=== PATIENT | male | born 1975 | race American Indian/Alaskan Native ===

== ENCOUNTER 2020-04-21 03:34 | Emergency (ER) | payer OTHER ==
[2020-04-21] MEDS ORDERED: ONDANSETRON 4 MG ODT TAB PO ONE (05:13)
[2020-04-21] MEDS ORDERED: HYDROcodone/ACETAMINOPHEN 7.5-325MG TAB PO ONE (05:13)
[2020-04-21] MEDS ORDERED: IBUPROFEN 800 MG TAB PO ONE (05:13)
--- NOTE | 2020-04-21 05:50 | Emergency Department Report ---
ED Lower Extremity HPI - General Chief Complaint: Extremity Injury, Lower Stated Complaint: LEFT LEG PAIN Source: patient Mode of arrival: Ambulatory Limitations: No Limitations - History of Present Illness Initial Comments: Patient is a 44-year-old -[place] male with past medical history of hypertension presents to the ED with complaint of acute onset persistent left t high pain after a heavy box fell on his left thigh about 12 hours ago at work. Patient states that the pain is worse with ambulation or palpation of the left thigh especially in the posterior left thigh. Patient also complains of tingling sensation on his left foot. Patient states that he has not taken any medications since the incident occurred 12 hours ago. Patient denies fall, heavy lifting, dizziness, syncope, chest pain, shortness of breath, back pain, dysuria, urinary frequency and urgency, hematuria, abdominal pain or left leg weakness and numbness. MD Complaint: thigh injury (LEFT ), other (left thigh pain after heavy box fell on left thigh) -: Sudden, hour(s) (12) Injury: Thigh: Left (Pain) Type of Injury: blunt Place: work Severity: severe Severity scale (0 -10): 7 Improves With: nothing Worsens With: weight bearing, movement, palpation Context: direct blow Associated Symptoms: tingling, able to partially bear weight. denies: snap/pop sensation, swelling, numbness, unable to bear weight, ambulatory, other - Related Data Previous Rx's Medication Instructions Recorded Last Taken Type Ibuprofen [Motrin] 800 mg PO Q8HR PRN #30 tablet 04/21/20 Unknown Rx methOCARBAMOL [Robaxin TAB] 750 mg PO Q8H PRN #30 tablet 04/21/20 Unknown Rx traMADoL [Ultram] 50 mg PO Q6HR PRN #12 tablet 04/21/20 Unknown Rx Allergies Allergy/AdvReac Type Severity Reaction Status Date / Time No Known Allergies Allergy Unverified 04/21/20 03:43 ED Review of Systems ROS: Stated complaint: LEFT LEG PAIN Other details as noted in HPI Constitutional: denies: chills, fever Eyes: denies: eye pain, eye discharge, vision change ENT: denies: ear pain, throat pain Respiratory: denies: cough, shortness of breath, wheezing Cardiovascular: denies: chest pain, palpitations Endocrine: no symptoms reported Gastrointestinal: denies: abdominal pain, nausea, diarrhea Genitourinary: denies: urgency, dysuria Musculoskeletal: arthralgia (Left thigh pain), myalgia. denies: back pain, joint swelling Skin: denies: rash, lesions Neurological: denies: headache, weakness, paresthesias Psychiatric: denies: anxiety, depression Hematological/Lymphatic: denies: easy bleeding, easy bruising ED Past Medical Hx - Past Medical History Hx Hypertension: Yes - Surgical History Past Surgical History?: No - Social History Smoking Status: Never Smoker Substance Use Type: None - Medications Home Medications: Home Medications Medication Instructions Recorded Confirmed Last Taken Type Ibuprofen [Motrin] 800 mg PO Q8HR PRN #30 tablet 04/21/20 Unknown Rx methOCARBAMOL [Robaxin TAB] 750 mg PO Q8H PRN #30 tablet 04/21/20 Unknown Rx traMADoL [Ultram] 50 mg PO Q6HR PRN #12 tablet 04/21/20 Unknown Rx ED Physical Exam - General Limitations: No Limitations General appearance: alert, in no apparent distress - Head Head exam: Present: atraumatic, normocephalic, normal inspection - Eye Eye exam: Present: normal appearance, PERRL, EOMI Pupils: Present: normal accommodation - ENT ENT exam: Present: normal exam, normal orophraynx, mucous membranes moist, TM's normal bilaterally, normal external ear exam - Neck Neck exam: Present: normal inspection, full ROM - Respiratory Respiratory exam: Present: normal lung sounds bilaterally. Absent: respiratory distress, wheezes, rales, stridor, chest wall tenderness, accessory muscle use, decreased breath sounds, prolonged expiratory - Cardiovascular Cardiovascular Exam: Present: regular rate, normal rhythm, normal heart sounds. Absent: systolic murmur, diastolic murmur, rubs, gallop - GI/Abdominal GI/Abdominal exam: Present: soft, normal bowel sounds. Absent: tenderness, guarding, rebound, hyperactive bowel sounds, hypoactive bowel sounds - Extremities Exam Extremities exam: Present: normal inspection, full ROM, tenderness (Palpable left thigh tenderness especially in the posterior left thigh), normal capillary refill. Absent: pedal edema, joint swelling, calf tenderness - Back Exam Back exam: Present: normal inspection, full ROM. Absent: tenderness, CVA tenderness (R), CVA tenderness (L), muscle spasm, paraspinal tenderness, vertebral tenderness - Neurological Exam Neurological exam: Present: alert, oriented X3, CN II-XII intact, normal gait, reflexes normal - Psychiatric Psychiatric exam: Present: normal affect, normal mood - Skin Skin exam: Present: warm, dry, intact, normal color. Absent: rash ED Course Vital Signs 04/21/20 03:40 Temperature 97.9 F Pulse Rate 92 H Respiratory 18 Rate Blood Pressure 172/118 O2 Sat by Pulse 97 Oximetry ED Lower Extremity MDM - Medical Decision Making This is a 44-year-old -[place] male with past medical history of hypertension presents to the ED with complaint of acute onset persistent left thigh pain after a heavy box fell on his left thigh about 12 hours ago at work. Patient states that the pain is worse with ambulation or palpation of the left thigh especially in the posterior left thigh. Patient also complains of tingling sensation on his left foot. Patient states that he has not taken any medications since the incident occurred 12 hours ago. In the ED, patient is alert and oriented x3 and is not in distress. Patient was treated for pain in the ED and based on the physical exam findings, the patient was discharged home on pain medications and muscle relaxants and was advised to follow-up with his primary care physician in 5 to 7 days for reevaluation or return to the ED immediately if symptoms get worse. - Differential Diagnosis Muscle strain; muscle spasm; contusion; radiculopathy Critical care attestation.: If time is entered above; I have spent that time in minutes in the direct care of this critically ill patient, excluding procedure time. ED Disposition Clinical Impression: Muscle spasm of left lower extremity Muscle strain of left thigh Qualifiers: Encounter type: initial encounter Qualified Code(s): S76.912A - Strain of unspecified muscles, fascia and tendons at thigh level, left thigh, initial encounter Disposition: TO HOME OR SELFCARE Is pt being admited?: No Does the pt Need Aspirin: No Condition: Stable Instructions: Muscle Strain (ED), Muscle Spasm (ED) Additional Instructions: Take medication with food, drink plenty of fluids and follow-up with your primary care physician in 7 to 10 days for reevaluation. Return to the ED immediately if symptoms get worse. Prescriptions: Ibuprofen [Motrin] 800 mg PO Q8HR PRN #30 tablet PRN Reason: Pain , Severe (7-10) methOCARBAMOL [Robaxin TAB] 750 mg PO Q8H PRN #30 tablet PRN Reason: Muscle Spasm traMADoL [Ultram] 50 mg PO Q6HR PRN #12 tablet PRN Reason: Pain Referrals: [facility] [Provider Group] - 3-5 Days Forms: Work/School Release Form(ED) Time of Disposition: 05:51 Print Language: NORWEGIAN
[2020-04-21 07:18] VITALS: BP 156/106
== END 2020-04-21 06:00 | disposition home or self-care (01) ==
LOC: ED 03:34
DX: S76.912A Strain of unspecified muscles, fascia and tendons at thigh level, left thigh, initial encounter (principal); M62.838 Other muscle spasm; I10 Essential (primary) hypertension; Z79.899 Other long term (current) drug therapy; W22.8XXA Striking against or struck by other objects, initial encounter; Y93.89 Activity, other specified; Y92.89 Other specified places as the place of occurrence of the external cause; Y99.8 Other external cause status
CPT/HCPCS: 99282; Q0162

== ENCOUNTER 2021-07-04 12:27 | Emergency (ER) | payer OTHER ==
[2021-07-04] MEDS ORDERED: MORPHINE 4 MG/1 ML INJ IV ONE (13:49)
[2021-07-04] MEDS ORDERED: ONDANSETRON 4 MG/2 ML INJ IV ONE (13:49)
[2021-07-04 14:21] LABS: Hematocrit 53.1 % (35.5-45.6); Hemoglobin 17.1 gm/dl (11.8-15.2); Mean Corpuscular HGB Conc 32 % (32-34); Mean Corpuscular Volume 90 fl (84-94); Red Blood Count 5.93 M/mm3 (3.65-5.03); Red Cell Distribution Width 14.7 % (13.2-15.2)
[2021-07-04 14:22] LABS: Platelet Count 174 K/mm3 (140-440)
--- NOTE | 2021-07-04 15:06 | Emergency Department Report ---
<BONY DE LA ROSA - Last Filed: 07/04/21 21:17> ED Abdominal Pain HPI - General Chief Complaint: Abdominal Pain Stated Complaint: HTN CRISIS Time Seen by Provider: 07/04/21 13:36 - Related Data Previous Rx's Medication Instructions Recorded Last Taken Type Ibuprofen [Motrin] 800 mg PO Q8HR PRN #30 tablet 04/21/20 Unknown Rx methOCARBAMOL [Robaxin TAB] 750 mg PO Q8H PRN #30 tablet 04/21/20 Unknown Rx traMADoL [Ultram] 50 mg PO Q6HR PRN #12 tablet 04/21/20 Unknown Rx amLODIPine 5 mg PO DAILY #30 tablet 07/04/21 Unknown Rx traMADoL [Ultram 50 MG tab] 50 mg PO Q6HR PRN #12 tablet 07/04/21 Unknown Rx Allergies Allergy/AdvReac Type Severity Reaction Status Date / Time No Known Allergies Allergy Unverified 04/21/20 03:43 ED Past Medical Hx - Medications Home Medications: Home Medications Medication Instructions Recorded Confirmed Last Taken Type Ibuprofen [Motrin] 800 mg PO Q8HR PRN #30 tablet 04/21/20 Unknown Rx methOCARBAMOL [Robaxin TAB] 750 mg PO Q8H PRN #30 tablet 04/21/20 Unknown Rx traMADoL [Ultram] 50 mg PO Q6HR PRN #12 tablet 04/21/20 Unknown Rx amLODIPine 5 mg PO DAILY #30 tablet 07/04/21 Unknown Rx traMADoL [Ultram 50 MG tab] 50 mg PO Q6HR PRN #12 tablet 07/04/21 Unknown Rx ED Medical Decision Making - Lab Data Result diagrams: 07/04/21 13:49 07/04/21 15:01 Lab Results 07/04/21 07/04/21 07/04/21 Range/Units 13:49 15:01 Unknown WBC 5.8 (4.5-11.0) K/mm3 RBC 5.93 H (3.65-5.03) M/mm3 Hgb 17.1 H (11.8-15.2) gm/dl Hct 53.1 H (35.5-45.6) % MCV 90 (84-94) fl MCH 29 (28-32) pg MCHC 32 (32-34) % RDW 14.7 (13.2-15.2) % Plt Count 174 (140-440) K/mm3 Sodium 135 L (137-145) mmol/L Potassium 3.7 (3.6-5.0) mmol/L Chloride 97.6 L (98-107) mmol/L Carbon Dioxide 23 (22-30) mmol/L Anion Gap 18 mmol/L BUN 11 (9-20) mg/dL Creatinine 1.0 (0.8-1.3) mg/dL Estimated GFR > 60 ml/min BUN/Creatinine Ratio 11 % Glucose 111 H (75-100) mg/dL Calcium 9.3 (8.4-10.2) mg/dL Total Bilirubin 0.30 (0.1-1.2) mg/dL AST 19 (5-40) units/L ALT 16 (7-56) units/L Alkaline Phosphatase 103 (35-129) units/L Total Protein 7.9 (6.3-8.2) g/dL Albumin 4.3 (3.9-5) g/dL Albumin/Globulin Ratio 1.2 % Urine Color Yellow (Yellow) Urine Turbidity Clear (Clear) Urine pH 6.0 (5.0-7.0) Ur Specific Gabbs 1.021 (1.003-1.030) Urine Protein 100 mg/dl (Negative) mg/dL Urine Glucose (UA) Neg (Negative) mg/dL Urine Ketones 20 (Negative) mg/dL Urine Blood Neg (Negative) Urine Nitrite Neg (Negative) Urine Bilirubin Neg (Negative) Urine Urobilinogen 2.0 (<2.0) mg/dL Ur Leukocyte Esterase Neg (Negative) Urine WBC (Auto) 2.0 (0.0-6.0) /HPF Urine RBC (Auto) 2.0 (0.0-6.0) /HPF U Epithel Cells (Auto) < 1.0 (0-13.0) /HPF Urine Mucus 1+ /HPF - Radiology Data Radiology results: report reviewed Ordering Physician: MAYLIN CARBALLO MD Date of Service: 07/04/21 Procedure(s): CT abdomen pelvis w con Accession Number(s): [id number] cc: MAYLIN CARBALLO MD CT abdomen pelvis w con INDICATION / CLINICAL INFORMATION: rlq pain. omni 300 100cc. . TECHNIQUE: Axial CT imaging of abdomen and pelvis was obtained with IV contrast. Coronal and sagittal reformatted imaging obtained and reviewed. All CT scans at this location are performed using CT dose reduction for ALARA by means of automated exposure control. COMPARISON: None available. FINDINGS: CT abdomen with contrast demonstrates grossly normal appearance of the liver, spleen, pancreas, kidneys, and adrenal glands. Gallbladder is present without obvious abnormality. No biliary dilatation. Abdominal aorta is unremarkable. CT pelvis with contrast demonstrates normal appearance of the appendix within the right lower quadrant. No evidence of appendicitis or other acute inflammatory process. GI tract is unremarkable. Prostate gland is minimally enlarged. Visualized lung bases are clear. Review of osseous structures is unremarkable. IMPRESSION: 1. No acute finding within the abdomen or pelvis. Specifically, the appendix is normal in appearance. Signer Name: Karen Waddell MD Signed: 07/04/2021 7:26 PM Workstation Name: [id number] Transcribed By: Dictated By: Karen Waddell MD Electronically Authenticated By: Karen Waddell MD Signed Date/Time: 07/04/211925 DD/ 22 TD/TT: - Medical Decision Making Patient signed out by Dr. Carballo, ER attending pending CT abdomen pelvis, he a dvised that if CT is normal patient may be discharged home for outpatient follow-up On reexamination patient states his pain is completely resolved. CT abdomen pelvis with IV contrast 1. No acute finding within the abdomen or pelvis. Specifically, the appendix is normal in appearance. Patient states he has a history of hypertension but has not been on medication for approximately 5 years. I will start patient on low-dose amlodipine and discussed lifestyle modifications and keeping a blood pressure log. I discussed with patient the importance of GI follow-up. I discussed return precautions with patient. advised patient Please take medication as prescribed. Follow-up with your primary care doctor. Follow-up with a GI doctor. Eat a low-sodium diet. Incorporate 30 to 60 minutes of daily exercise. Increase your water intake. Keep a blood pressure log. Return to emergency room for any new or worsening symptoms. ED Disposition Clinical Impression: Acute right flank pain, Elevated blood pressure reading Disposition: HOME / SELF CARE / HOMELESS Is pt being admited?: No Does the pt Need Aspirin: No Condition: Stable Instructions: Abdominal Pain, Adult, [id number], Hypertension, Adult, [id number] Additional Instructions: Please take medication as prescribed. Follow-up with your primary care doctor. Follow-up with a GI doctor. Eat a low-sodium diet. Incorporate 30 to 60 minutes of daily exercise. Increase your water intake. Keep a blood pressure log. Return to emergency room for any new or worsening symptoms. Prescriptions: amLODIPine 5 mg PO DAILY #30 tablet traMADoL [Ultram 50 MG tab] 50 mg PO Q6HR PRN #12 tablet PRN Reason: Pain Referrals: PRIMARY CARE, [Primary Care Provider] - 3-5 Days [facility] [Provider Group] - 3-5 Days Forms: Work/School Release Form(ED) Time of Disposition: 19:33 Print Language: HUNGARIAN <CHI CARBALLO - Last Filed: 07/06/21 11:44> ED Abdominal Pain HPI - General Source: patient Mode of arrival: Ambulatory Limitations: No Limitations - History of Present Illness Initial Comments: patient presented secondary to bowel pain. Today he had onset of right flank pain that hurt into the right groin as well. He was having significant pain. Is clammy and diaphoretic. He is never had pain like this before. There is no trauma associate with this. He has had no fevers or chills per there is no cough congestion. He has had no recent exposure to any kind of illness. Patient denies dysuria or hematuria. He denies any colicky type pain. It was sharp and stabbing. Severity scale (0 -10): 10 ED Review of Systems ROS: Stated complaint: HTN CRISIS Other details as noted in HPI Comment: All other systems reviewed and negative Constitutional: denies: fever Eyes: denies: eye pain ENT: denies: throat pain Respiratory: denies: cough Cardiovascular: denies: chest pain Endocrine: denies: unexplained weight loss Gastrointestinal: as per HPI Genitourinary: denies: dysuria Musculoskeletal: as per HPI Skin: denies: rash Neurological: denies: headache Hematological/Lymphatic: denies: as per HPI ED Past Medical Hx - Past Medical History Hx Hypertension: Yes - Family History Family history: hypertension - Social History Smoking Status: Never Smoker Substance Use Type: None ED Physical Exam - General Limitations: No Limitations, Other ( Pulse ox noted normal) General appearance: alert, in distress ( moderate) - Head Head exam: Present: atraumatic, normocephalic - Eye Eye exam: Present: normal appearance, EOMI. Absent: scleral icterus - ENT ENT exam: Present: normal exam, normal external ear exam - Neck Neck exam: Present: normal inspection. Absent: meningismus - Respiratory Respiratory exam: Present: normal lung sounds bilaterally. Absent: respiratory distress - Cardiovascular Cardiovascular Exam: Present: regular rate, normal rhythm - GI/Abdominal GI/Abdominal exam: Present: soft. Absent: tenderness - Extremities Exam Extremities exam: Present: normal capillary refill - Back Exam Back exam: Present: CVA tenderness (R). Absent: CVA tenderness (L) - Neurological Exam Neurological exam: Present: alert, oriented X3, CN II-XII intact. Absent: motor sensory deficit - Psychiatric Psychiatric exam: Present: normal affect, normal mood - Skin Skin exam: Present: warm, dry ED Course Vital Signs 07/04/21 07/04/21 13:46 19:50 Temperature 98 F Pulse Rate 73 90 Respiratory 16 20 Rate Blood Pressure 175/116 150/90 [Right] O2 Sat by Pulse 100 99 Oximetry - Reevaluation(s) Reevaluation #1: 07/04/21 15:[address] were ordered. Old records reviewed Reevaluation #2: 07/06/21 11:44 Work-up was complete. ED Medical Decision Making - Lab Data Result diagrams: 07/04/21 13:49 07/04/21 15:01 - Medical Decision Making Patient presented secondary to abdominal pain. This was right flank pain rating to the right groin. There was some concern as to whether he had kidney stone. It was unlikely that he had appendicitis. Care was signed out pending CT. As above, CT was noted and the patient was discharged by the follow-up provider. There is certainly no evidence of hepatitis or pancreatitis. He had no evidence of acute urinary tract infection or obstruction. Critical Care Time: No Critical care attestation.: If time is entered above; I have spent that time in minutes in the direct care of this critically ill patient, excluding procedure time.
[2021-07-04 15:50] LABS: Bilirubin,Urine NEG (Negative); Blood,Urine NEG (Negative); Color,Urine Yellow (Yellow); Mucus,Urine 1+ /HPF
[2021-07-04 15:55] LABS: Alanine Aminotransferase 16 units/L (7-56); Albumin 4.3 g/dL (3.9-5); BUN/Creatinine Ratio 11; Blood Urea Nitrogen 11 mg/dL (9-20); Calcium 9.3 mg/dL (8.4-10.2); Hemolysis Index 22
--- NOTE | 2021-07-04 19:31 | Cat Scan Report ---
CT abdomen pelvis w con INDICATION / CLINICAL INFORMATION: rlq pain. omni 300 100cc. . TECHNIQUE: Axial CT imaging of abdomen and pelvis was obtained with IV contrast. Coronal and sagittal reformatte d imaging obtained and reviewed. All CT scans at this location are performed using CT dose reduction for ALARA by means of automated exposure control. COMPARISON: None available. FINDINGS: CT abdomen with contrast demonstrates grossly normal appearance of the liver, spleen, pancreas, kidne ys, and adrenal glands. Gallbladder is present without obvious abnormality. No biliary dilatation. Ab dominal aorta is unremarkable. CT pelvis with contrast demonstrates normal appearance of the appendix within the right lower quadran t. No evidence of appendicitis or other acute inflammatory process. GI tract is unremarkable. Prostat e gland is minimally enlarged. Visualized lung bases are clear. Review of osseous structures is unremarkable. IMPRESSION: 1. No acute finding within the abdomen or pelvis. Specifically, the appendix is normal in appearance. Signer Name: Karen Waddell MD Signed: 07/04/2021 7:26 PM Workstation Name: [id number]
[2021-07-04 20:55] VITALS: BP 150/90
== END 2021-07-04 19:50 | disposition home or self-care (01) ==
LOC: ED 12:27
DX: R10.31 Right lower quadrant pain (principal); I10 Essential (primary) hypertension
CPT/HCPCS: 36415; 74177; 80053; 81001; 85027; 96374; 96375; 99284; J2270; J2405; Q9967

== ENCOUNTER 2021-10-17 20:58 | Emergency (ER) | payer OTHER ==
[2021-10-17] MEDS ORDERED: hydrALAZINE 25 MG TAB PO ONE (22:39)
--- NOTE | 2021-10-17 23:08 | XRay Report ---
CHEST 2 VIEWS INDICATION / CLINICAL INFORMATION: CHEST PAIN. COMPARISON: None available. FINDINGS: SUPPORT DEVICES: None. HEART / MEDIASTINUM: No significant abnormality. LUNGS / PLEURA: No significant pulmonary or pleural abnormality. No pneumothorax. ADDITIONAL FINDINGS: No significant additional findings. IMPRESSION: 1. No acute findings. Signer Name: Kaveh Gr MD Signed: 10/17/2021 11:04 PM Workstation Name: [id number]
[2021-10-17 23:11] LABS: Alanine Aminotransferase 20 units/L (7-56); Albumin 4.5 g/dL (3.9-5); BUN/Creatinine Ratio 12; Blood Urea Nitrogen 11 mg/dL (9-20); Hemolysis Index 3
[2021-10-17 23:17] LABS: Basophils % (Auto) 0.7 % (0.0-1.8); Eosinophils # (Auto) 0.1 K/mm3 (0.0-0.4); Eosinophils % (Auto) 1.1 % (0.0-4.3); Hematocrit 44.3 % (35.5-45.6); Hemoglobin 14.6 gm/dl (11.8-15.2); Lymphocytes # (Auto) 1.4 K/mm3 (1.2-5.4); Lymphocytes % (Auto) 26.3 % (13.4-35.0); Mean Corpuscular HGB Conc 33 % (32-34); Mean Corpuscular Volume 91 fl (84-94); Monocytes # (Auto) 0.4 K/mm3 (0.0-0.8); Monocytes % (Auto) 6.7 % (0.0-7.3); Platelet Count 172 K/mm3 (140-440); Red Blood Count 4.89 M/mm3 (3.65-5.03); Red Cell Distribution Width 14.3 % (13.2-15.2)
[2021-10-18] MEDS ORDERED: POTASSIUM CHLORIDE ER 20 MEQ TAB PO ONE (00:11)
[2021-10-18 00:23] VITALS: BP 193/127
[2021-10-18] MEDS ORDERED: NIFEdipine XL 60 MG TAB PO ONE (01:57)
--- NOTE | 2021-10-18 02:36 | Emergency Department Report ---
ED General Adult HPI - General Chief complaint: High BP Stated complaint: HIGH BP Source: patient Mode of arrival: Ambulatory Limitations: No Limitations - History of Present Illness Initial comments: Patient is a 46-year-old -Congol[place] male with a history of hypertension w hich is well controlled and who is also noncompliant with his medications presents to the ED with persistent elevated blood pressure for the last 2 months, worse in the last 1 week. Patient also states that in the last 2 days he has been feeling generalized weakness and fatigue. Patient denies chest pain, shortness of breath, headache, dizziness, syncope, lightheadedness, palpitations, fever, chills, cough, abdominal pain, neck pain or back pain. MD Complaint: Generalized fatigue, elevated blood pressure -: Sudden, week(s) (1) Location: head Radiation: non-radiation Severity scale (0 -10): 0 Quality: dull Consistency: intermittent Worsens with: none Associated Symptoms: denies other symptoms, malaise. denies: confusion, chest pain, cough, diaphoresis, fever/chills, headaches, loss of appetite, nausea/vomiting, rash, shortness of breath, syncope, weakness Treatments Prior to Arrival: none - Related Data Previous Rx's Medication Instructions Recorded Last Taken Type Ibuprofen [Motrin] 800 mg PO Q8HR PRN #30 tablet 04/21/20 Unknown Rx methOCARBAMOL [Robaxin TAB] 750 mg PO Q8H PRN #30 tablet 04/21/20 Unknown Rx traMADoL [Ultram] 50 mg PO Q6HR PRN #12 tablet 04/21/20 Unknown Rx amLODIPine 5 mg PO DAILY #30 tablet 07/04/21 Unknown Rx traMADoL [Ultram 50 MG tab] 50 mg PO Q6HR PRN #12 tablet 07/04/21 Unknown Rx Lisinopril/Hydrochlorothiazide 1 tab PO QDAY #30 tab 10/18/21 Unknown Rx [Zestoretic 20-12.5 mg] amLODIPine 10 mg PO DAILY #30 tab 10/18/21 Unknown Rx Allergies Allergy/AdvReac Type Severity Reaction Status Date / Time No Known Allergies Allergy Unverified 04/21/20 03:43 ED Review of Systems ROS: Stated complaint: HIGH BP Other details as noted in HPI Constitutional: malaise, weakness, other (Elevated blood pressure). denies: chills, fever Eyes: denies: eye pain, eye discharge, vision change ENT: denies: ear pain, throat pain Respiratory: denies: cough, shortness of breath, wheezing Cardiovascular: denies: chest pain, palpitations Endocrine: no symptoms reported Gastrointestinal: denies: abdominal pain, nausea, diarrhea Genitourinary: denies: urgency, dysuria Musculoskeletal: denies: back pain, joint swelling, arthralgia Skin: denies: rash, lesions Neurological: denies: headache, weakness, paresthesias Psychiatric: denies: anxiety, depression Hematological/Lymphatic: denies: easy bleeding, easy bruising ED Past Medical Hx - Past Medical History Hx Hypertension: Yes - Social History Smoking Status: Never Smoker Substance Use Type: None - Medications Home Medications: Home Medications Medication Instructions Recorded Confirmed Last Taken Type Ibuprofen [Motrin] 800 mg PO Q8HR PRN #30 tablet 04/21/20 Unknown Rx methOCARBAMOL [Robaxin TAB] 750 mg PO Q8H PRN #30 tablet 04/21/20 Unknown Rx traMADoL [Ultram] 50 mg PO Q6HR PRN #12 tablet 04/21/20 Unknown Rx amLODIPine 5 mg PO DAILY #30 tablet 07/04/21 Unknown Rx traMADoL [Ultram 50 MG tab] 50 mg PO Q6HR PRN #12 tablet 07/04/21 Unknown Rx Lisinopril/Hydrochlorothiazide 1 tab PO QDAY #30 tab 10/18/21 Unknown Rx [Zestoretic 20-12.5 mg] amLODIPine 10 mg PO DAILY #30 tab 10/18/21 Unknown Rx ED Physical Exam - General Limitations: No Limitations General appearance: alert, in no apparent distress - Head Head exam: Present: atraumatic, normocephalic, normal inspection - Eye Eye exam: Present: normal appearance, PERRL, EOMI Pupils: Present: normal accommodation - ENT ENT exam: Present: normal exam, normal orophraynx, mucous membranes moist, TM's normal bilaterally, normal external ear exam - Neck Neck exam: Present: normal inspection, full ROM. Absent: tenderness - Respiratory Respiratory exam: Present: normal lung sounds bilaterally. Absent: respiratory distress, wheezes, rales, rhonchi, chest wall tenderness, accessory muscle use, decreased breath sounds, prolonged expiratory - Cardiovascular Cardiovascular Exam: Present: regular rate, normal rhythm, normal heart sounds. Absent: systolic murmur, diastolic murmur, rubs, gallop - GI/Abdominal GI/Abdominal exam: Present: soft, normal bowel sounds. Absent: tenderness, guarding, rebound, hyperactive bowel sounds, hypoactive bowel sounds, mass - Extremities Exam Extremities exam: Present: normal inspection, full ROM, normal capillary refill. Absent: tenderness - Back Exam Back exam: Present: normal inspection, full ROM. Absent: tenderness, CVA tenderness (R), CVA tenderness (L), muscle spasm, paraspinal tenderness, vertebral tenderness - Neurological Exam Neurological exam: Present: alert, oriented X3, CN II-XII intact, normal gait, reflexes normal - Psychiatric Psychiatric exam: Present: normal affect, normal mood - Skin Skin exam: Present: warm, dry, intact, normal color. Absent: rash ED Course Vital Signs 10/17/21 10/17/21 10/17/21 21:02 22:00 22:46 Temperature 98.4 F Pulse Rate 77 68 Respiratory 18 Rate Blood Pressure 195/133 203/132 202/137 Blood Pressure [Left] O2 Sat by Pulse 97 Oximetry 10/18/21 00:22 Temperature Pulse Rate 67 Respiratory 12 Rate Blood Pressure Blood Pressure 193/127 [Left] O2 Sat by Pulse 99 Oximetry ED Medical Decision Making - Lab Data Result diagrams: 10/17/21 22:34 10/17/21 22:34 - Medical Decision Making This is a 46-year-old -Congol[place] male with a history of hypertension which is well controlled and who is also noncompliant with his medications presents to the ED with persistent elevated blood pressure for the last 2 months, worse in the last 1 week. Patient also states that in the last 2 days he has been feeling generalized weakness and fatigue. In the ED, patient is alert and oriented x3 and is not in any distress. Patient is hypertensive in triage. Lab test results were reviewed and are all nonactionable. Patient was also treated in the ED with antihypertensive medications. On reevaluation, patient will hypertension improved slightly, patient will discharge home on medications and advised to follow-up with his primary care physician in 5 to 7 days for reevaluation or return to the ED immediately if symptoms get worse. - Differential Diagnosis Uncontrolled hypertension; viral syndrome Critical care attestation.: If time is entered above; I have spent that time in minutes in the direct care of this critically ill patient, excluding procedure time. ED Disposition Clinical Impression: Uncontrolled stage 2 hypertension Disposition: 01 HOME / SELF CARE / HOMELESS Is pt being admited?: No Does the pt Need Aspirin: No Condition: Stable Instructions: Coronary Artery Disease, Male, Hypertension, Adult, [id number], Hypertension (ED) Additional Instructions: All lab test results were reviewed and are all nonactionable. Therefore take medications with food, drink plenty of fluids and follow-up with your primary care physician in 7 to 10 days for reevaluation or return to the ED immediately if symptoms get worse. Prescriptions: amLODIPine 10 mg PO DAILY #30 tab Lisinopril/Hydrochlorothiazide [Zestoretic 20-12.5 mg] 1 tab PO QDAY #30 tab Referrals: NIRAJ CAVAZOS NP [Primary Care Provider] - 3-5 Days [facility] [Provider Group] - 7-10 days GAVIN ARIZMENDI MD [Staff Physician] - 7-10 days Forms: Work/School Release Form(ED) Time of Disposition: 02:35 Print Language: BULGARIAN
--- NOTE | 2021-10-18 11:54 | Electrocardiograph Report ---
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 No previous ECG available for comparison Electronically Signed On 10-18-2021 11:54:45 EDT by Rell Mcgarry
== END 2021-10-18 03:00 | disposition home or self-care (01) ==
LOC: ED 20:58
DX: I10 Essential (primary) hypertension (principal)
CPT/HCPCS: 36415; 71046; 80053; 84484; 85025; 93005; 99283